=== PATIENT | female | born 1960 | race Two or more races ===

== ENCOUNTER 2020-10-06 08:35 | Emergency (ER) | payer OTHER ==
[2020-10-06 08:54] VITALS: BP 132/88; PULSE 90; TEMP 97; BMI 38.9
[2020-10-06] MEDS ORDERED: KETOROLAC TROMETHAMINE 60 MG/2 ML VIAL IM ONE (09:48)
[2020-10-06] MEDS ORDERED: KETOROLAC TROMETHAMINE 60 MG/2 ML VIAL ONE ×2 (10:02→10:03)
== END 2020-10-06 12:09 | disposition home or self-care (01) ==
LOC: JER 08:35
PROC: 3E0233Z Introduction of Anti-inflammatory into Muscle, Percutaneous Approach (ICD-10-PCS; principal; 2020-10-06)
DX: M71.22 Synovial cyst of popliteal space [Baker], left knee (principal); M54.30 Sciatica, unspecified side
CPT/HCPCS: 72100-TC-FY; 93971-TC; 99284-25

== ENCOUNTER 2022-10-13 04:42 | Day surgery (SDC) | payer OTHER ==
[2022-10-13 11:17] VITALS: TEMP 98.2
[2022-10-13 11:48] VITALS: BP 109/52; PULSE 72; RESP 20
== END 2022-10-13 12:00 | disposition home or self-care (01) ==
LOC: JASU-ENDO 04:42
PROVIDERS: ATTEND Internal Medicine Gastroenterology
PROC: 0DBK8ZX Excision of Ascending Colon, Via Natural or Artificial Opening Endoscopic, Diagnostic (ICD-10-PCS; principal; 2022-10-13 10:45)
DX: Z12.11 Encounter for screening for malignant neoplasm of colon (principal); K63.5 Polyp of colon; K64.8 Other hemorrhoids
CPT/HCPCS: 88305-TC

== ENCOUNTER 2022-10-27 04:33 | Day surgery (SDC) | payer OTHER ==
[2022-10-22 16:19] VITALS: BMI 38.3
[2022-10-27 11:15] VITALS: TEMP 97.7
[2022-10-27 11:58] VITALS: BP 135/76; PULSE 63; RESP 16
== END 2022-10-27 12:00 | disposition home or self-care (01) ==
LOC: JASU-ENDO 04:33
PROVIDERS: ATTEND Internal Medicine Gastroenterology
PROC: 0DB78ZX Excision of Stomach, Pylorus, Via Natural or Artificial Opening Endoscopic, Diagnostic (ICD-10-PCS; 2022-10-27)
PROC: 0DB98ZX Excision of Duodenum, Via Natural or Artificial Opening Endoscopic, Diagnostic (ICD-10-PCS; principal; 2022-10-27 10:00)
DX: K29.70 Gastritis, unspecified, without bleeding (principal); B96.81 Helicobacter pylori [H. pylori] as the cause of diseases classified elsewhere
CPT/HCPCS: 88305-TC; 88341-TC; 88342-TC